=== PATIENT | male | born 1985 | race Two or more races ===

== ENCOUNTER 2018-10-05 13:22 | Emergency (ER) ==
[2018-10-05 13:24] VITALS: BP 137/96; TEMP 97.4; BMI 40.5
--- NOTE | 2018-10-05 15:09 | ED.PDOC ---
General ED Provider: Dr. MELISSA MAY Chief Complaint: Headache Stated Complaint: Patient complains of feeling weak and having a tension type of headache. States he became ill yesterday with 2 episodes of vomitine and currently has been having diarrhea and headache. Time Seen by Physician: 15:10 Mode of Arrival: Walk-In Information Source: Patient Exam Limitations: No limitations Primary Care Provider: CARLENE GOMEZ Nursing and Triage Documentation Reviewed and Agree: Yes Does patient meet sepsis criteria?: No System Inflammatory Response Syndrome: Not Applicable Sepsis Protocol: For patient's 13 years and over: Temp is 96.8 and below OR 101 and greater Pulse >90 BPM Resp >20/minute Acutely Altered Mental Status Are patient's symptoms suggestive of a new infection, such as: -Pneumonia -Skin, Soft Tissue -Endocarditis -UTI -Bone, Joint Infection -Implantable Device -Acute Abdominal Infection -Wound Infection -Meningitis -Blood Stream Catheter Infection -Unknown GI Complaint Exam - Vomiting/Diarrhea Complaint/Exam Onset/Duration: 24 hrs Symptoms Are: Still present Episodes of Vomiting over last 24 Hours: 2 Episodes of Diarrhea Over Last 24 Hours: 2 Initial Severity: Moderate Current Severity: Mild Character of Vomiting: Reports: Bilious Character of Diarrhea: Reports: Watery, Mucoid Aggravating: Reports: None Alleviating: Reports: None Associated Signs and Symptoms: Denies: Dizziness, Light-headedness, Melena, Hematemesis, Fever, Abdominal pain, Cramping Related History: Reports: Similar episode Non-GI Risk Factors: Reports: None Surgical Obstruction Risk Factors: Reports: None Related Surgical History: Reports: None Abdominal Findings: Present: None Kussmaul Respirations Present: No Differential Diagnoses: Viral Gastroenteritis, Other (Tension Headache) Review of Systems - Review Of Systems Constitutional: Reports: No symptoms Eyes: Reports: No symptoms Ears, Nose, Mouth, Throat: Reports: No symptoms Respiratory: Reports: No symptoms Cardiac: Reports: No symptoms GI: Reports: No symptoms, Diarrhea, Nausea, Vomiting : Reports: No symptoms Musculoskeletal: Reports: No symptoms Skin: Reports: No symptoms Neurological: Reports: No symptoms Endocrine: Reports: No symptoms Hematologic/Lymphatic: Reports: No symptoms All Other Systems: Reviewed and Negative Past Medical History - Past Medical History Previously Healthy: Yes Endocrine: Reports: None Cardiovascular: Reports: None Respiratory: Reports: None Hematological: Reports: None Gastrointestinal: Reports: None Genitourinary: Reports: None Neuro/Psych: Reports: None Musculoskeletal: Reports: None Cancer: Reports: None - Surgical History General Surgical History: Reports: None - Family History Family History: Reports: None - Social History Smoking Status: Never smoker Hx Substance Use: No Alcohol Screening: None - Immunizations Tetanus Shot up to Date: No Physical Exam - Physical Exam Appearance: Obese Ill-appearing: Mild Pain Distress: None Eyes: OZIEL, EOMI, Conjunctiva clear ENT: Ears normal, Nose normal, Erythema Neck: Supple Respiratory: Airway patent, Breath sounds clear, Breath sounds equal, Respirations nonlabored Cardiovascular: RRR, Pulses normal, No rub, No murmur GI/: Soft, Nontender, No masses, Bowel sounds normal, No Organomegaly Critical Care Note - Critical Care Note Total Time (mins): 0 Course - Course Hematology/Chemistry: 10/05/18 15:31 10/05/18 15:31 Orders, Labs, Meds: Lab Review 10/05/18 10/05/18 10/05/18 15:31 15:31 15:31 WBC 7.84 RBC 5.06 Hgb 14.5 Hct 44.6 MCV 88.1 MCH 28.7 MCHC 32.5 RDW Coeff of Ace 14.5 Plt Count 190 Immature Gran % (Auto) 0.3 Neut % (Auto) 72.1 Lymph % (Auto) 17.3 [place] % (Auto) 6.9 Eos % (Auto) 3.1 Baso % (Auto) 0.3 Immature Gran # (Auto) 0.0 Neut # (Auto) 5.7 Lymph # (Auto) 1.4 [place] # (Auto) 0.5 Eos # (Auto) 0.2 Baso # (Auto) 0.0 Sodium 134.9 Potassium 3.76 Chloride 98.7 Carbon Dioxide 25.2 Anion Gap 14.76 BUN 10.5 Creatinine 0.70 Estimated GFR (MDRD) 131.00 BUN/Creatinine Ratio 15.00 Glucose 97.7 Calcium 8.48 Total Bilirubin 0.66 AST 29.1 ALT 29.0 Alkaline Phosphatase 74.2 Total Protein 7.85 Albumin 4.79 Globulin 3.06 Albumin/Globulin Ratio 1.56 Urine Color Urine Clarity Urine pH Ur Specific [place] Urine Protein Urine Glucose (UA) Urine Ketones Urine Blood Urine Nitrite Urine Bilirubin Urine Urobilinogen Ur Leukocyte Esterase Urine Microscopic RBC Ur Squamous Epith Cells Urine Mucus Urine Opiates Screen Negative Ur Oxycodone Screen Negative Urine Methadone Screen Negative Ur Propoxyphene Screen Negative Ur Barbiturates Screen Negative U Tricyclic Antidepress Negative Ur Phencyclidine Scrn Negative Ur Amphetamine Screen Negative U Methamphetamines Scrn Negative U Benzodiazepines Scrn Negative Urine Cocaine Screen Negative U Cannabinoids Screen Negative Influ A Molecular Assay Influ B Molecular Assay 10/05/18 10/05/18 15:31 15:31 WBC RBC Hgb Hct MCV MCH MCHC RDW Coeff of Ace Plt Count Immature Gran % (Auto) Neut % (Auto) Lymph % (Auto) [place] % (Auto) Eos % (Auto) Baso % (Auto) Immature Gran # (Auto) Neut # (Auto) Lymph # (Auto) [place] # (Auto) Eos # (Auto) Baso # (Auto) Sodium Potassium Chloride Carbon Dioxide Anion Gap BUN Creatinine Estimated GFR (MDRD) BUN/Creatinine Ratio Glucose Calcium Total Bilirubin AST ALT Alkaline Phosphatase Total Protein Albumin Globulin Albumin/Globulin Ratio Urine Color Yellow Urine Clarity Clear Urine pH 5.5 Ur Specific [place] 1.025 Urine Protein Trace Urine Glucose (UA) Negative Urine Ketones Negative Urine Blood Trace-lysed Urine Nitrite Negative Urine Bilirubin Negative Urine Urobilinogen 0.2 Ur Leukocyte Esterase Negative Urine Microscopic RBC 5-10 Ur Squamous Epith Cells Not present Urine Mucus 4+ Urine Opiates Screen Ur Oxycodone Screen Urine Methadone Screen Ur Propoxyphene Screen Ur Barbiturates Screen U Tricyclic Antidepress Ur Phencyclidine Scrn Ur Amphetamine Screen U Methamphetamines Scrn U Benzodiazepines Scrn Urine Cocaine Screen U Cannabinoids Screen Influ A Molecular Assay Negative by naat Influ B Molecular Assay Negative by naat Orders Category Date Time Status CBC W/ AUTO DIFF Stat LAB 10/05/18 15:31 Completed CMP [COMPREHENSIVE METABOLIC PANEL] Stat LAB 10/05/18 15:31 Completed FLU A & B MOLECULAR [FLU A/B MOLECULAR] Stat LAB 10/05/18 15:31 Completed RAPID STREP SCREEN [MOLECULAR GROUP A STREP] Stat LAB 10/05/18 15:31 Completed UA [URINALYSIS C & S IF INDICATED] Stat LAB 10/05/18 15:31 Completed URINE DRUG SCREEN (RAPID FOR ED) [DRUG SCREEN, URINE, LAB 10/05/18 15:31 Completed RAPID] Stat CT HEAD W/O CONTRAST Stat RADS 10/05/18 15:12 Taken Vital Signs: Temp Pulse Resp BP Pulse Ox 10/05/18 13:22 97.4 F L 82 18 137/96 H 96 Departure - Departure Time of Disposition: 16:50 Disposition: HOME SELF-CARE Discharge Problem: Gastroenteritis, Tension headache Instructions: Acute Nausea and Vomiting (ED), Tension Headache (ED) Condition: Good Pt referred to PMD for follow-up: Yes (1 wk) IPMP verified?: No Additional Instructions: consume adequate oral liquids take tylenol or advil for headache Zofran as needed for nausea or vomiting Allergies/Adverse Reactions: Allergies No Known Allergies Allergy (Verified 10/05/18 13:24) Home Medications: Ambulatory Orders Ondansetron [Zofran Odt] 4 mg PO Q8H PRN #7 [email or web address] 10/05/18 Disposition Discussed With: Patient
--- NOTE | 2018-10-06 05:24 | CT ---
EXAM: CT of the head without contrast History: Headache. Technique: Multiplanar CT images through the head were obtained without the administration of IV con trast Findings: Mild mucosal thickening of the visualized left maxillary sinus. Mild mucosal thickening o f the sphenoid sinuses. Mastoid air cells are clear. No acute calvarial abnormalities. Intracranially the ventricular and cisternal spaces are normal in size, shape and configuration for a patient of this age. No dominant mass or midline shift. No hydrocephalous. No acute intracranial hemorrhage or abnormal extraaxial fluid collections. Impression: 1. No acute intracranial process. 2. Mild sinus disease
== END 2018-10-05 17:22 | disposition home or self-care (01) ==
LOC: ED 13:22
DX: K52.9 Noninfective gastroenteritis and colitis, unspecified (principal); G44.209 Tension-type headache, unspecified, not intractable
CPT/HCPCS: 36415; 80053; 80306; 81001; 85025; 87502; 87651; 99283